=== PATIENT | male | born 1990 | race Caucasian/White ===

== ENCOUNTER 2024-01-27 16:19 | Emergency (ER) | payer OTHER, SELFPAY ==
[2024-01-27 16:26] VITALS: BMI 24.4
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
[2024-01-27 16:28] VITALS: BP 112/65
[2024-01-27] MEDS: TYLENOL 1000 MG PO (17:47)
[2024-01-27] MEDS: MOTRIN 600 MG PO (17:47)
[2024-01-27] MEDS: DILAUDID 1 MG IV (18:32)
[2024-01-27] MEDS: ZOFRAN 4 MG IV (18:32)
[2024-01-27 19:33] VITALS: BP 134/91
== END 2024-01-27 19:35 | disposition home or self-care (01) ==
LOC: EMR 16:19
PROVIDERS: EMERGENCY PHYSICIAN Student in an Organized Health Care Education/Training Program
DX: S42.211A Unspecified displaced fracture of surgical neck of right humerus, initial encounter for closed fracture (principal); W50.0XXA Accidental hit or strike by another person, initial encounter; Y93.67 Activity, basketball; F17.200 Nicotine dependence, unspecified, uncomplicated
CPT/HCPCS: 96374; 96375; 99284; 73030

== ENCOUNTER → 2024-04-22 09:26 | Outpatient (REF) | payer BC, SELFPAY | LOC: HWRAD 09:26 | PROVIDERS: ATTENDING PHYSICIAN Orthopaedic Surgery; FAMILY PHYSICIAN Family Medicine | DX: S42.291A Other displaced fracture of upper end of right humerus, initial encounter for closed fracture (principal) | CPT/HCPCS: 73200 ==